=== PATIENT | male | born 1970 | race African-American/Black ===

== ENCOUNTER 2018-04-03 10:11 | Inpatient (IN) | payer OTHER ==
[~2018-04-03] VITALS: Ht 188 cm; Wt 174.6 kg
[2018-04-03 12:02] LABS: CHLORIDE 97 mEq/L (98-107)
[2018-04-03 12:03] LABS: BASOPHILS % 0.4 % (0.0-2.0); EOSINOPHILS % 1.6 % (0.0-5.0); HEMATOCRIT. 39.7 % (42.0-52.0); HEMOGLOBIN. 13.5 g/dL (14.0-18.0); MEAN CORPUSCULAR HEMOGLOBIN 29.6 pg (28.0-32.0); MEAN CORPUSCULAR VOLUME 86.8 fL (80.0-94.0); MEAN PLATELET VOLUME 9.1 fl (7.4-10.4); MONOCYTES % 8.4 % (2.0-8.0); NEUTROPHILS % 78.6 % (40.0-76.0); PLATELET 315 x1000/uL (130-400); RED BLOOD CELL COUNT 4.58 mill/uL (4.7-6.1); RED CELL DISTRIBUTION WIDTH 13.2 % (11.6-14.6)
[2018-04-03] MEDS ORDERED: IOHEXOL-300 100 ML BOTTLE ONE (12:58)
[2018-04-03] MEDS ORDERED: PIPERACILLIN/TAZOBACTAM 3.375GM/50ML PREMIX IV STA (13:21)
[2018-04-03] MEDS ORDERED: SODIUM CHLORIDE 0.9% 1,000 ML IV ONE (13:30)
[2018-04-03 15:08] LABS: CLARITY URINE CLEAR (CLEAR); COLOR URINE YELLOW (YELLOW); KETONES URINE NEGATIVE (NEGATIVE); LEUKOCYTE ESTERASE URINE TRACE (NEGATIVE); NITRITE URINE NEGATIVE (NEGATIVE); OCCULT BLOOD URINE NEGATIVE (NEGATIVE); PROTEIN URINE NEGATIVE (NEGATIVE); SPECIFIC GRAVITY URINE 1.044 (1.005-1.030)
[2018-04-03] MEDS ORDERED: SODIUM BICARBONATE 4% (2.4MEQ) 5ML VIAL IV ONE (15:48)
[2018-04-03] MEDS ORDERED: LIDOCAINE HCL 1% 20ML VIAL (Pyxis) INJ ONE (15:48)
[2018-04-03 16:00] VITALS: BP 154/94
[2018-04-03 17:47] LABS: INR 1.1; PROTHROMBIN TIME 11.3 sec (9.1-11.1)
[2018-04-03 18:15] VITALS: BP 154/94
[2018-04-03] MEDS ORDERED: MAGNESIUM/ALUMINUM HYDROXIDE/SIMETHICONE 30ML UDC PO PRN (19:30)
[2018-04-03] MEDS ORDERED: DEXTROSE 50% WATER 50ML SYRINGE IV PRN (19:30)
[2018-04-03] MEDS ORDERED: CLONIDINE 0.1MG TABLET PO PRN (19:30)
[2018-04-03] MEDS ORDERED: TEMAZEPAM 15MG CAPSULE PO PRN (19:30)
[2018-04-03] MEDS ORDERED: ACETAMINOPHEN 325MG TABLET PO PRN (19:30)
[2018-04-03] MEDS ORDERED: ONDANSETRON HCL 4MG/2ML INJ IV PRN (19:30)
[2018-04-03 20:06] VITALS: BP 152/90
[2018-04-03] MEDS: AMLODIPINE 5MG TABLET PO SCH (20:41)
[2018-04-03] MEDS: BLOOD SUGAR DIAGNOSTIC STRIP TEST SCH (21:16)
[2018-04-03] MEDS: INSULIN LISPRO 100 UNITS/ML SUBCUT SCH (21:24)
[2018-04-03] MEDS: ENOXAPARIN 40MG/0.4ML SYR SUBCUT SCH (21:28)
[2018-04-03] MEDS: SODIUM CHLORIDE 0.9% INJ 3ML FLUSH IVF SCH (22:00)
[2018-04-03] MEDS: PIPERACILLIN/TAZ 3.375G PREMIX 50 ML IV SCH (23:11)
[2018-04-04] VITALS (7 sets, daily range): BP systolic 132–180; BP diastolic 75–103
[2018-04-04] MEDS: VANCOMYCIN 1,250 MG in DEXT 5% WATER 250 ML IV SCH ×4 (00:44→22:36)
[2018-04-04] MEDS: PIPERACILLIN/TAZ 3.375G PREMIX 50 ML IV SCH ×4 (05:13→20:53)
[2018-04-04] MEDS: SODIUM CHLORIDE 0.9% INJ 3ML FLUSH IVF SCH ×3 (06:46→22:36)
[2018-04-04] MEDS: BLOOD SUGAR DIAGNOSTIC STRIP TEST SCH ×4 (07:01→20:54)
[2018-04-04] MEDS: INSULIN LISPRO 100 UNITS/ML SUBCUT SCH ×4 (07:03→20:55)
[2018-04-04] MEDS: GLIMEPIRIDE 2MG TABLET PO SCH (07:04)
[2018-04-04] MEDS: LOSARTAN POTASSIUM 50 MG TABLET PO SCH (09:14)
[2018-04-04] MEDS: AMLODIPINE 5MG TABLET PO SCH ×2 (09:15→20:53)
[2018-04-04] MEDS: ENOXAPARIN 40MG/0.4ML SYR SUBCUT SCH ×2 (09:17→20:53)
[2018-04-04] MEDS: TRAMADOL 50MG TABLET PO PRN ×2 (12:23→20:54)
[2018-04-05] MEDS: PIPERACILLIN/TAZ 3.375G PREMIX 50 ML IV SCH ×3 (03:12→15:38)
[2018-04-05] MEDS: VANCOMYCIN 1,250 MG in DEXT 5% WATER 250 ML IV SCH ×2 (06:25→14:09)
[2018-04-05] MEDS: GLIMEPIRIDE 2MG TABLET PO SCH (06:25)
[2018-04-05] MEDS: INSULIN LISPRO 100 UNITS/ML SUBCUT SCH ×3 (06:26→17:44)
[2018-04-05] MEDS: SODIUM CHLORIDE 0.9% INJ 3ML FLUSH IVF SCH ×2 (06:26→14:10)
[2018-04-05] MEDS: BLOOD SUGAR DIAGNOSTIC STRIP TEST SCH ×3 (06:26→17:24)
[2018-04-05 06:41] LABS: CHLORIDE 97 mEq/L (98-107)
[2018-04-05 08:00] VITALS: BP 143/80
[2018-04-05] MEDS: ENOXAPARIN 40MG/0.4ML SYR SUBCUT SCH (10:26)
[2018-04-05] MEDS: LOSARTAN POTASSIUM 50 MG TABLET PO SCH (10:26)
[2018-04-05] MEDS: AMLODIPINE 5MG TABLET PO SCH (10:27)
[2018-04-05] MEDS: TRAMADOL 50MG TABLET PO PRN (10:49)
[2018-04-05 12:00] VITALS: BP 163/97
[2018-04-05 19:30] VITALS: BP 134/94
[2018-04-05 19:34] VITALS: BP 149/93
== END 2018-04-05 20:05 | disposition home health service (06) | DRG 871 ==
LOC: ER 11:58 → 5WST 13:28 → ENRESERV 13:40
PROVIDERS: ADMIT Internal Medicine; ATTEND Internal Medicine
PROC: 0W9F30Z Drainage of Abdominal Wall with Drainage Device, Percutaneous Approach (ICD-10-PCS; principal; 2018-04-03)
DX: A41.9 Sepsis, unspecified organism (principal); K65.1 Peritoneal abscess; E43 Unspecified severe protein-calorie malnutrition; T81.41XA Infection following a procedure, superficial incisional surgical site, initial encounter; L03.311 Cellulitis of abdominal wall; Z68.42 Body mass index [BMI] 45.0-49.9, adult; E11.9 Type 2 diabetes mellitus without complications; I10 Essential (primary) hypertension; Z82.49 Family history of ischemic heart disease and other diseases of the circulatory system; Z83.3 Family history of diabetes mellitus; Y83.8 Other surgical procedures as the cause of abnormal reaction of the patient, or of later complication, without mention of misadventure at the time of the procedure; Y92.89 Other specified places as the place of occurrence of the external cause
CPT/HCPCS: 20611; 36415; 74177; 80048; 80202; 82962; 83605; 87070; 87077; 87186; 93005; 96365; 99285; C1729; J1650; J1815; J2543; J3370; J3490; J7050; J7060; Q9967

== ENCOUNTER 2018-11-05 10:20 | Emergency (ER) | payer OTHER | END 2018-11-05 11:39 | disposition left against medical advice (07) | LOC: ER 10:20 | DX: Z53.21 Procedure and treatment not carried out due to patient leaving prior to being seen by health care provider (principal) ==